=== PATIENT | male | born 1950 | race Caucasian/White ===

== ENCOUNTER 2016-07-02 09:33 | Emergency (ER) | payer MEDICARE, BC ==
[~2016-07-02] VITALS: Ht 175.3 cm; Wt 104.5 kg
[2016-07-02 09:35] VITALS: BP 150/93; PULSE 99; RESP 20; TEMP 97.7; O2SAT 95
[2016-07-02] MEDS ORDERED: SODIUM CHLOR 0.9% 1000 ML INJ 1,000 ML IV SCH (09:52)
[2016-07-02] MEDS ORDERED: ASPI81CH CHEW (09:59)
[2016-07-02] MEDS ORDERED: VICT18IN SQ (09:59)
[2016-07-02] MEDS ORDERED: METF500T PO (09:59)
[2016-07-02] MEDS ORDERED: LYRI150C PO (09:59)
[2016-07-02] MEDS ORDERED: ATOR10TA15 PO (09:59)
[2016-07-02] MEDS ORDERED: LISI-519 PO (09:59)
[2016-07-02] MEDS ORDERED: LANS30CA PO (09:59)
[2016-07-02 10:00] VITALS: O2SAT 100
[2016-07-02] MEDS ORDERED: ONDANSETRON HCL 4 MG/2 ML VIAL IVP ONE (10:00)
[2016-07-02] MEDS ORDERED: ACETAMINOPHEN/HYDROcodone 325 MG/5 MG TAB PO ONE (10:00)
[2016-07-02] MEDS ORDERED: SODIUM CHLORIDE 0.9% FLUSH 10 ML FLUSH IV FLUSH PRN (10:00)
[2016-07-02 10:13] LABS: AUTOMATED NEUTROPHIL # 6.4 TH/MM3 (1.8-7.7); BASOPHIL % 0.5 % (0.0-2.0); EOSINOPHIL # 0.1 TH/MM3 (0-0.4); EOSINOPHIL % 0.9 % (0.0-4.0); HEMATOCRIT 49.8 % (39.0-51.0); HEMO FLAGS DIFF FINAL; LYMPH % 18.8 % (9.0-44.0); LYMPHOCYTE # 1.6 TH/MM3 (1.0-4.8); MEAN CELL VOLUME 87.2 FL (80.0-100.0); MEAN CORPUSCULAR HEMOGLOBIN 29.8 PG (27.0-34.0); MEAN CORPUSCULAR HGB CONC 34.2 % (32.0-36.0); MONO % 6.5 % (0.0-8.0); NEUT % 73.3 % (16.0-70.0); PLATELET COUNT 183 TH/MM3 (150-450); RED BLOOD COUNT 5.71 MIL/MM3 (4.50-5.90); RED CELL DISTRIBUTION WIDTH 14.5 % (11.6-17.2); WHITE BLOOD COUNT 8.8 TH/MM3 (4.0-11.0)
--- NOTE | 2016-07-02 10:18 | PD ---
HPI Chief Complaint: GI Complaint Time Seen by Provider: 09:51 Travel History International Travel<30 days: No Contact w/Intl Traveler<30days: No Traveled to known affect area: No History of Present Illness HPI Patient 66-year-old male presents with generalized abdominal cramping as well as some diarrhea for the past 24-36 hours. Patient states cramping in nature throughout his abdomen. States never had this Thing happen before denies any fever denies any nausea vomiting. Denies any blood in the stool. Patient is currently on vacation from [place]. He is never been to our facility before. States he has a history of a cholecystectomy otherwise no surgeries. Denies any fevers. PFSH Past Medical History High Cholesterol: Yes Diabetes: Yes (TYPE II) Patient Takes Glucophage: Yes Hypertension: Yes Tetanus Vaccination: > 5 Years Past Surgical History Cholecystectomy: Yes Tonsillectomy: Yes Social History Alcohol Use: No Tobacco Use: No Substance Use: No Allergies-Medications (Allergen,Severity, Reaction): Coded Allergies: No Known Allergies (Unverified , 07/02/16) Reported Meds & Prescriptions Reported Meds & Active Scripts Active Keflex (Cephalexin) 500 Mg Cap 500 Mg PO Q6H Zofran Odt (Ondansetron Odt) 4 Mg Tab 4 Mg SL Q6HR PRN Bentyl (Dicyclomine HCl) 20 Mg Tab 20 Mg PO TID PRN Reported Victoza Inj (Liraglutide Inj) 18 Mg/3 Ml Pen 1.8 Mg SQ DAILY Lisinopril 5 Mg Tab 5 Mg PO DAILY Lansoprazole 30 Mg Capdr 30 Mg PO DAILY Aspirin 81 Mg Chew 81 Mg CHEW DAILY Metformin (Metformin HCl) 500 Mg Tab 500 Mg PO BIDPC With meals Lyrica (Pregabalin) 150 Mg Cap 150 Mg PO BID Atorvastatin (Atorvastatin Calcium) 10 Mg Tab 10 Mg PO HS Review of Systems Except as stated in HPI: all other systems reviewed are Neg Physical Exam Narrative GENERAL: Well-developed well-nourished, overweight no apparent distress. SKIN: Focused skin assessment warm/dry. HEAD: Atraumatic. Normocephalic. EYES: Pupils equal and round. No scleral icterus. No injection or drainage. ENT: No nasal bleeding or discharge. Mucous membranes pink and moist. NECK: Trachea midline. No JVD. CARDIOVASCULAR: Regular rate and rhythm. No murmur appreciated. RESPIRATORY: No accessory muscle use. Clear to auscultation. Breath sounds equal bilaterally. GASTROINTESTINAL: Abdomen soft, non-tender, nondistended. Hepatic and splenic margins not palpable. No rebound no percussive tenderness. No CVA tenderness. MUSCULOSKELETAL: No obvious deformities. No clubbing. No cyanosis. No edema. NEUROLOGICAL: Awake and alert. No obvious cranial nerve deficits. Motor grossly within normal limits. Normal speech. PSYCHIATRIC: Appropriate mood and affect; insight and judgment normal. Data Data Last Documented VS Vital Signs Date Time Temp Pulse Resp B/P Pulse Ox O2 Delivery O2 Flow Rate FiO2 07/02/16 14:47 97 15 122/84 96 07/02/16 12:00 Room Air 07/02/16 09:35 97.7 Orders Complete Blood Count With Diff (07/02/16 09:52) Comprehensive Metabolic Panel (07/02/16 09:52) Lipase (07/02/16 09:52) Urinalysis - C+S If Indicated (07/02/16 09:52) Iv Access Insert/Monitor (07/02/16 09:52) Ecg Monitoring (07/02/16 09:52) Oximetry (07/02/16 09:52) Ondansetron Inj (Zofran Inj) (07/02/16 10:00) Sodium Chlor 0.9% 1000 Ml Inj (Ns 1000 M (07/02/16 09:52) Sodium Chloride 0.9% Flush (Ns Flush) (07/02/16 10:00) Electrocardiogram (07/02/16 09:52) Troponin I (07/02/16 09:52) Acetamin-Hydrocod 325-5 Mg ([place] 5-325 (07/02/16 10:00) Ct Abd/Pel W Iv Contrast(Rout) (07/02/16 ) Al-Mag Hy-Si 40-40-4 Mg/Ml Liq (Mag-Al P (07/02/16 12:00) Lidocaine 2% Viscous (Xylocaine 2% Visco (07/02/16 12:00) Morphine Inj (Morphine Inj) (07/02/16 12:00) Urine Culture (07/02/16 11:41) Iohexol 350 Inj (Omnipaque 350 Inj) (07/02/16 13:28) Labs Laboratory Tests Test 07/02/16 07/02/16 10:00 11:41 White Blood Count 8.8 TH/MM3 Red Blood Count 5.71 MIL/MM3 Hemoglobin 17.0 GM/DL Hematocrit 49.8 % Mean Corpuscular Volume 87.2 FL Mean Corpuscular Hemoglobin 29.8 PG Mean Corpuscular Hemoglobin 34.2 % Concent Red Cell Distribution Width 14.5 % Platelet Count 183 TH/MM3 Mean Platelet Volume 8.3 FL Neutrophils (%) (Auto) 73.3 % Lymphocytes (%) (Auto) 18.8 % Monocytes (%) (Auto) 6.5 % Eosinophils (%) (Auto) 0.9 % Basophils (%) (Auto) 0.5 % Neutrophils # (Auto) 6.4 TH/MM3 Lymphocytes # (Auto) 1.6 TH/MM3 Monocytes # (Auto) 0.6 TH/MM3 Eosinophils # (Auto) 0.1 TH/MM3 Basophils # (Auto) 0.0 TH/MM3 CBC Comment DIFF FINAL Differential Comment Sodium Level 139 MEQ/L Potassium Level 4.2 MEQ/L Chloride Level 103 MEQ/L Carbon Dioxide Level 27.5 MEQ/L Anion Gap 9 MEQ/L Blood Urea Nitrogen 14 MG/DL Creatinine 0.97 MG/DL Estimat Glomerular Filtration 77 ML/MIN Rate Random Glucose 133 MG/DL Calcium Level 9.4 MG/DL Total Bilirubin 0.9 MG/DL Aspartate Amino Transf 23 U/L (AST/SGOT) Alanine Aminotransferase 30 U/L (ALT/SGPT) Alkaline Phosphatase 74 U/L Troponin I LESS THAN 0.02 NG/ML Total Protein 7.3 GM/DL Albumin 4.2 GM/DL Lipase 270 U/L Urine Color YELLOW Urine Turbidity HAZY Urine pH 6.0 Urine Specific [place] 1.026 Urine Protein TRACE mg/dL Urine Glucose (UA) NEG mg/dL Urine Ketones NEG mg/dL Urine Occult Blood TRACE Urine Nitrite NEG Urine Bilirubin NEG Urine Urobilinogen 2.0 MG/DL Urine Leukocyte Esterase LARGE Urine RBC 3 /hpf Urine WBC 43 /hpf Urine WBC Clumps RARE Urine Squamous Epithelial <1 /hpf Cells Urine Transitional Epithelial <1 /hpf Cells Urine Bacteria RARE /hpf Urine Mucus FEW /lpf Microscopic Urinalysis Comment CULTURE INDICATED MDM Medical Decision Making Medical Screen Exam Complete: Yes Emergency Medical Condition: Yes Differential Diagnosis Gastritis, pancreatitis, cholecystitis, bowel obstruction seems less likely, acute abdomen seems highly unlikely. Narrative Course Patient was roomed in emergency department, he was given pain medicine as well as basic lab work. Basic lab work (CBC CMP and lipase. ) are reassuring. Patient still having some pain despite pain medicine and was given GI cocktail as well as some morphine. His pain was starting to resolve. Given that he needed multiple doses of pain medication and seems to be a fairly stoic gentleman CT examination was indicated. Last 24 hours Impressions Abdomen/Pelvis CT 07/02/16 0000 Signed Impressions: Service Date/Time: Saturday, July 02, 2016 13:05 - CONCLUSION: 1. Distended segments of small bowel in the mid to lower abdomen. There appear to be transition points proximally and distally where the small bowel appears thickened. This could be secondary to enteritis. This appears does suggest a somewhat closed loop obstruction involving the mid to distal small bowel. This is nonspecific. The terminal ileum appears grossly normal. Despite this, Crohn's could still be considered. 2. Sigmoid colon diverticula without inflammatory change. 3. Non-obstructing small left renal stones. Leif Rossi MD Discussed with Dr. Jose the above findings at length and while obstruction is on the differential diagnosis the CT scan favors an inflammatory process such as an acute enteritis or Crohn's disease. Patient has no history for the latter. He is feeling much better after medicines. Discussed with the patient at length the CAT scan results and while obstruction remains on the differential he is not having significant obstipation signs at this time. He seems fairly reliable and I think that if he wanted to try outpatient symptomatic management as well as a bland diet this is reasonable as his clinical picture much favors enteritis. He would like to go home at this time. He is from [place] and would like to follow-up with a shift production supervisor when he gets home. I discussed with him I'm comfortable with this decision but counseled him closely on signs symptoms of worsening obstruction that she should return to the emergency department for. He was grateful and left the emergency department no apparent distress. Diagnosis Primary Impression: Enteritis Med/Other Pt SpecificInfo: Prescription(s) given Scripts Cephalexin (Keflex)500 Mg [id number] Mg PO Q6H #7 CAP Ref 0 Prov:Dagoberto Nathan MD 07/02/16 Ondansetron Odt (Zofran Odt)4 Mg Tab4 Mg SL Q6HR PRN (Nausea/Vomiting) #30 TAB Ref 0 Prov:Dagoberto Nathan MD 07/02/16 Dicyclomine (Bentyl)20 Mg Tab20 Mg PO TID PRN (Bowel Management) #20 TAB Ref 0 Prov:Dagoberto Nathan MD 07/02/16 Disposition: 01 DISCHARGE HOME Condition: Stable Dagoberto Nathan MD Jul 02, 2016 10:18
[2016-07-02 10:37] LABS: ALT (GPT) 30 U/L (12-78); ANION GAP 9 MEQ/L (5-15); AST (GOT) 23 U/L (15-37); BICARBONATE 27.5 MEQ/L (21.0-32.0); BLOOD UREA NITROGEN 14 MG/DL (7-18); CHLORIDE 103 MEQ/L (98-107); GLOMERULAR FILTRATION RATE 77 ML/MIN (>89); POTASSIUM 4.2 MEQ/L (3.5-5.1); SODIUM (NA) 139 MEQ/L (136-145)
[2016-07-02 10:40] LABS: ALKALINE PHOSPHATASE 74 U/L (45-117); TOTAL BILIRUBIN ADULT 0.9 MG/DL (0.2-1.0)
[2016-07-02 12:00] VITALS: BP 116/79; PULSE 84; RESP 16; O2SAT 93
[2016-07-02] MEDS ORDERED: LIDOCAINE VISCOUS 2% SOLN 15 ML UDC PO ONE (12:00)
[2016-07-02] MEDS ORDERED: ALUMINUM/MAGNESIUM/SIMETH 30 ML CUP PO ONE (12:00)
[2016-07-02] MEDS ORDERED: MORPHINE SULFATE 8 MG/ML INJ IV PUSH PRN (12:00)
[2016-07-02 12:13] LABS: BACTERIA, URINE RARE /hpf; BLOOD, URINE TRACE (NEG); GLUCOSE,URINE NEG (NEG); KETONE, URINE NEG (NEG); MUCUS URINE FEW /lpf (OCC); NITRITE,URINE NEG (NEG); SQUAMOUS EPITHELIAL CELL URINE <1 /hpf (0-5); TRANSITIONAL EPI CELLS, URINE <1 /hpf; URINE COLOR YELLOW (YELLW/STRAW)
[2016-07-02 12:16] LABS: COMMENT (UR) CULTURE INDICATED; CULTURE IF INDICATED CULTURE INDICATED
[2016-07-02] MEDS ORDERED: IOHEXOL 350 MG/ML 10 ML VIAL (for RAD DIAG) IV ONE (13:28)
[2016-07-02] MEDS ORDERED: BENT20TA PO (14:36)
[2016-07-02] MEDS ORDERED: ZOFR4TAB3 SL (14:36)
[2016-07-02] MEDS ORDERED: CEPH-460 PO (14:36)
[2016-07-02 14:47] VITALS: BP 122/84
--- NOTE | 2016-07-02 14:50 | RADRPT ---
EXAM DATE/TIME: 07/02/2016 13:05 [facility] COMPARISON: No previous studies available for comparison. INDICATIONS : Epigastric pain for two days. IV CONTRAST: 90 cc Omnipaque 350 (iohexol) IV ORAL CONTRAST: No oral contrast ingested. RADIATION DOSE: 12.35 CTDIvol (mGy) MEDICAL HISTORY : Hypertension. Diabetes SURGICAL HISTORY : Cholecystectomy. ENCOUNTER: Initial ACUITY: 2 days PAIN SCALE: 7/10 LOCATION: Epigastric abdomen TECHNIQUE: Volumetric scanning of the abdomen and pelvis was performed. Using automated exposure control and ad justment of the mA and/or kV according to patient size, radiation dose was kept as low as reasonably achievable to obtain optimal diagnostic quality images. FINDINGS: The stomach is distended. There is some fluid in the distal esophagus. There are some segments of d ilated small bowel in the mid to lower abdomen. There appears to be some thickening of the bowel proximal and dis triston to these distended segments. The air that is felt to be proximal is seen in the left lower abdomen ante riorly. The more distal transition is seen in the right lower quadrant. There is some fluid seen around this mor e distal transition. An abscess is not seen. There are a few scattered colonic diverticula in the sigmoid re gion. Significant inflammatory change with thickening of the colon is not seen. Clips are seen in the right upper quadrant presumably from prior cholecystectomy. Gallbladder is not seen. The spleen, pancreas, adrenal glands are normal. There are small non-obstructing left renal stones measu ring up to 4 mm. No hydronephrosis is seen. There is minimal cystic change seen at the kidneys bilaterally. Ath erosclerotic changes are seen about the aorta. No aneurysm is seen. Significant adenopathy is not appreciated. Calcifications are seen in the prostate. There is a small amount of free fluid seen in the dependent portion of the peritoneal cavity in the pelvis. Clips are seen in the inguinal regions presumably from prior vasectomy. CONCLUSION: 1. Distended segments of small bowel in the mid to lower abdomen. There appear to be transition poi nts proximally and distally where the small bowel appears thickened. This could be secondary to ente ritis. This appears does suggest a somewhat closed loop obstruction involving the mid to distal smal l bowel. This is nonspecific. The terminal ileum appears grossly normal. Despite this, Crohn's coul d still be considered. 2. Sigmoid colon diverticula without inflammatory change. 3. Non-obstructing small left renal stones. Leif Rossi MD on July 02, 2016 at 13:57 Board Certified Radiologist. This report was verified electronically.
--- NOTE | 2016-07-02 15:05 | EKG ---
Date Performed: 07/02/2016 Time Performed: 10:00:41 PTAGE: 66 years EKG: Sinus rhythm POSSIBLE LEFT ATRIAL ENLARGEMENT MARKED RIGHT AXIS DEVIATION PATTERN CONSISTENT WITH PULMONARY DISEA SE ABNORMAL ECG PREVIOUS TRACING : 07/02/2016 09.58 Since previous tracing, no significant change noted DOCTOR: Nixon Evans Interpretating Date/Time 07/04/2016 08:11:18
== END 2016-07-02 14:48 | disposition home or self-care (01) ==
LOC: NEPD 09:33
DX: K52.9 Noninfective gastroenteritis and colitis, unspecified (principal); R94.31 Abnormal electrocardiogram [ECG] [EKG]; N39.0 Urinary tract infection, site not specified; B96.89 Other specified bacterial agents as the cause of diseases classified elsewhere
CPT/HCPCS: 74177; 80053; 81001; 83690; 84484; 85025; 87077; 87086; 87186; 93005; 96361; 96374; 96375; 99284; J2270; J2405; J7030; Q9967